=== PATIENT | female | born 1980 | race Caucasian/White ===

== ENCOUNTER 2018-09-15 06:20 | Day surgery (SDC) | payer OTHER ==
[~2018-09-15 06:20] MED LIST: IRO PO
== END 2018-09-15 13:35 | disposition home or self-care (01) ==
LOC: CIR.AMB 06:20
DX: D24.1 Benign neoplasm of right breast (principal)

== ENCOUNTER 2020-09-18 05:16 | Day surgery (SDC) | payer OTHER | END 2020-09-18 13:15 | disposition home or self-care (01) | LOC: CIR.AMB 05:16 | PROVIDERS: ATTEND Obstetrics & Gynecology | DX: N93.8 Other specified abnormal uterine and vaginal bleeding (principal); Z20.822 Contact with and (suspected) exposure to COVID-19 ==